=== PATIENT | female | born 1960 | race Caucasian/White ===

== ENCOUNTER → 2021-02-15 | Day surgery (SDC) | payer MEDICARE, OTHER ==
[~2021-02-15] MED LIST: ASPIRIN81 MG PO; BENZONATATE100 MG PO; BUPIVACAINE 0.25% 30ML SDV ONE; CEFAZOLIN SOD 1 GM/NS 50ML 50 ML IV ONE; DEXAMETHASONE SOD PHOS INJ 4 MG/ML VIAL ONE; ESTRADIOL1 MG PO; FAMOTIDINE 20 MG/2 ML VIAL IV ONE; FENTANYL CITRATE/PF 100MCG/2 ML INJ ONE; LIDOCAINE 1% W/EPINEPHRINE 20 ML VIAL ONE; LIDOCAINE HCL 2% LOCAL INJ 5 ML SDV VIAL INJ ONE; LORCET 10-6501 EACH PO; METOCLOPRAMIDE HCL 10 MG/2ML VIAL ONE; MULTI-VITAMIN1 EACH PO; NORVASC5 MG PO; ONDANSETRON HCL INJ 2MG/ML 2ML 2 MG/ML VIAL ONE; PHENERGAN25 MG/1 ML; PROAIR HFA INH8.5 GM INH; PROPOFOL IV EMULSION 10 MG/ML 20 ML VIAL ONE; PROTONIX20 MG PO; SEVOFLURANE INHAL SOLN 250 ML PEN BTL ONE; SOMA350 MG PO; SYMBICORT 16010.2 GM INH; XANAX XR2 MG PO; ZOFRAN ODT4 MG PO
[2021-02-15 14:45] VITALS: BP 138/75
== END | disposition home or self-care (01) ==
LOC: OR 10:39
PROVIDERS: ATTEND Surgery
DX: Z45.2 Encounter for adjustment and management of vascular access device (principal); Z85.44 Personal history of malignant neoplasm of other female genital organs; I10 Essential (primary) hypertension; J44.9 Chronic obstructive pulmonary disease, unspecified; M81.0 Age-related osteoporosis without current pathological fracture; K21.9 Gastro-esophageal reflux disease without esophagitis; Z88.8 Allergy status to other drugs, medicaments and biological substances; Z88.6 Allergy status to analgesic agent; Z91.041 Radiographic dye allergy status; Z01.812 Encounter for preprocedural laboratory examination; Z01.818 Encounter for other preprocedural examination; Z20.822 Contact with and (suspected) exposure to COVID-19; Z87.898 Personal history of other specified conditions
CPT/HCPCS: 36590; 71046; J0690; J1100; J2001; J2405; J2704; J2765; J3010; U0002